=== PATIENT | male | born 1990 | race Asian ===

== ENCOUNTER 2020-06-26 08:30 | Emergency (ER) | payer OTHER ==
[~2020-06-26] VITALS: Ht 170.2 cm; Wt 79.4 kg
[2020-06-26 09:27] VITALS: BP 138/79; TEMP 98.4
== END 2020-06-26 09:32 | disposition home or self-care (01) ==
LOC: ED 08:30
DX: S50.11XA Contusion of right forearm, initial encounter (principal); S51.831A Puncture wound without foreign body of right forearm, initial encounter; Y08.02XA Assault by strike by baseball bat, initial encounter; Y92.89 Other specified places as the place of occurrence of the external cause
CPT/HCPCS: 90471; 90715; 96372; 99283; J1885